=== PATIENT | female | born 1985 | race Caucasian/White ===

== ENCOUNTER 2016-11-17 10:03 | Inpatient (IN) | payer MEDICAID ==
[2016-11-20] MEDS ORDERED: PRENATAL VIT1 TAB PO (13:29)
[2016-11-20] MEDS ORDERED: COLACE-DPS100 MG PO (13:29)
[2016-11-20] MEDS ORDERED: MOTRIN-DPS800 MG PO (13:30)
[2016-11-20] MEDS ORDERED: NIPPLECREAM TP (13:30)
[2016-11-20] MEDS ORDERED: PERCOCET 5 DPS1 TAB PO (13:30)
== END 2016-11-19 12:08 | disposition home or self-care (01) | DRG 766 ==
DX: O34.211 Maternal care for low transverse scar from previous cesarean delivery (principal); E66.9 Obesity, unspecified; O69.81X0 Labor and delivery complicated by cord around neck, without compression, not applicable or unspecified; O99.02 Anemia complicating childbirth; D64.9 Anemia, unspecified; O99.334 Smoking (tobacco) complicating childbirth; F17.210 Nicotine dependence, cigarettes, uncomplicated; O99.214 Obesity complicating childbirth; O99.52 Diseases of the respiratory system complicating childbirth; J45.909 Unspecified asthma, uncomplicated; Z68.32 Body mass index [BMI] 32.0-32.9, adult; Z3A.39 39 weeks gestation of pregnancy; Z37.0 Single live birth

== ENCOUNTER 2016-12-30 10:21 | Emergency (ER) | payer MEDICAID ==
[~2016-12-30 10:21] MED LIST: COLACE-DPS100 MG PO; MOTRIN-DPS800 MG PO; NIPPLECREAM TP; PERCOCET 5 DPS1 TAB PO; PRENATAL VIT1 TAB PO
--- NOTE | 2017-01-03 23:16 | ER ---
ADMIT: 12/30/2016 RM/LOC: ER [facility] MR#: [id number] [address] JEY HERNANDEZ [address] [place] [address] Emergency Room Report SEX: F AGE: 31 : 1985 DATE: 12/30/2016 PRIMARY CARE: Dr. Cerna. CHIEF COMPLAINT: Bilateral lower leg swelling. HISTORY OF PRESENT ILLNESS: This is a pleasant 31-year-old, white female, who presents to the ER for evaluation of her lower extremities. The patient states she had surgery on Wednesday to repair an umbilical hernia as well as a tubal ligation. The patient states she has otherwise been doing well until she awoke this morning and noticed an increased swelling and heaviness in her bilateral lower legs. The patient denies any tony pain in the lower extremities. Does have a slight area of tenderness on her right distal medial thigh. Denies any shortness of breath, chest pain, racing heart, fainting, fevers, or chills. The patient states she has been active since her surgery, getting up to complete her ADLs. She continues to take care of her young child at home. She is able to ambulate into the department today. She also is concerned about some redness about the surgical incision site about her umbilicus stating it has been warm and red for the better part of today. COURSE IN THE EMERGENCY ROOM: The patient was seen and examined. I did evaluate her lower legs. It is significant for some bilateral pedal edema extending to the tibial plateau, cannot appreciate any erythema or produce any tenderness on exam. No palpable cords or erythema consistent with a superficial thrombophlebitis. Given her ambulatory status, the bilateral presentation without real pain, I did hold off on scanning her for any DVT today as I was unconcerned. Cardiopulmonary exam was reassuring. I did obtain some basic laboratory studies showing white count of 9.8, hemoglobin 10.9, hematocrit 34.3, platelets 217. Lactic acid was 0.7. Chemistry shows sodium 144, potassium 3.7, chloride 109, CO2 of 30, BUN 16, glucose 66, creatinine 0.8. Examination of her abdomen about the surgical site shows some redness and warmth extending outward from the surgical site concerning for possible cellulitis. IMPRESSION: 1. Surgical site postop cellulitis. 2. Bilateral lower leg edema. ADMIT: 12/30/2016 RM/LOC: [facility] MR#: [id number] [address] JEY HERNANDEZ [address] [place] [address] Emergency Room Report SEX: F AGE: 31 : 1985 DISPOSITION: Given the patient's recent surgery and the warmth and erythema about her surgical site, I did start her on Keflex 250 mg p.o. 4 times a day for 5 days. I did instruct her to elevate her leg and use compression stockings to help with some of the lower leg edema as I thought this was secondary to some volume overload after surgery. She is to continue to ambulate. Activity as tolerated. Continue all home medications. I did educate her on signs and symptoms of DVT and PE, and told her to return with any increased pain, swelling, or redness to the lower legs or new-onset shortness of breath. Questions were sought and answered to the best of my ability and the patient's satisfaction. She was discharged in stable condition to follow up with Dr. Hurtado next week per her scheduled postop appointment. KOLE Hackett / Ghassan Jones MD / ashley JOB #: [id number] CC: Ghassan Jones MD, Attending Physician UNKNOWN, Family Physician
== END 2016-12-30 13:30 | disposition home or self-care (01) ==
LOC: ER 10:21
DX: T81.4XXA Infection following a procedure, initial encounter (principal); L03.311 Cellulitis of abdominal wall; R60.0 Localized edema; Z98.890 Other specified postprocedural states; Z79.899 Other long term (current) drug therapy